=== PATIENT | female | born 1985 | race Two or more races ===

== ENCOUNTER 2023-01-27 11:38 | Emergency (ER) | payer SELFPAY ==
[~2023-01-27] VITALS: Ht 167.6 cm; Wt 105.0 kg
[2023-01-27 11:42] VITALS: BP 132/88; PULSE 113; RESP 18; TEMP 100; O2SAT 98
[2023-01-27] MEDS ORDERED: METOCLOPRAMIDE HCL 10MG/2ML VIAL IV ONE (12:45)
[2023-01-27] MEDS ORDERED: SODIUM CHLORIDE 0.9% 1,000 ML IV ONE (12:45)
[2023-01-27] MEDS ORDERED: ACETAMINOPHEN 325MG TABLET PO ONE (12:45)
== END 2023-01-27 13:42 | disposition left against medical advice (07) ==
LOC: ER 11:38
DX: R51.9 Headache, unspecified (principal); K50.90 Crohn's disease, unspecified, without complications; F41.9 Anxiety disorder, unspecified; F32.A Depression, unspecified
CPT/HCPCS: 99283; J7030